=== PATIENT | female | born 1970 | race Caucasian/White ===

== ENCOUNTER 2022-08-19 12:29 | Emergency (ER) | payer BC ==
[~2022-08-19] VITALS: Ht 165.1 cm; Wt 68.9 kg
[2022-08-19 12:37] VITALS: BP_SYST 119
--- NOTE | 2022-08-19 12:50 | NUR ---
PT BIB SELF AWAKE AND ALERT AOX4. PT C/O R CHEST PAIN X4 DAYS, W/ SOB. PT STATES PAIN 8/10. PT HAS HX OF HTN, HYPOTHYROISISM, AND HYSTERECTOMY.
--- NOTE | 2022-08-19 12:55 | NUR ---
MD DR CABRERA AT BEDSIDE
[2022-08-19 14:04] LABS: BASOPHILS % (AUTO) 0.5 % (0.0-2.0); EOSINOPHILS # (AUTO) 0.1 K/uL (0.0-0.4); EOSINOPHILS % (AUTO) 1.7 % (0.0-4.0); HEMATOCRIT 39.3 % (36-48); HEMOGLOBIN 13.2 g/dL (12.0-16.0); MEAN CORPUSCULAR HEMOGLOBIN 29 pg (27-31); MEAN CORPUSCULAR HGB CONC 33 % (32-36); MEAN CORPUSCULAR VOLUME 87 fL (79.0-98.0); MONOCYTES # (AUTO) 0.5 K/uL (0.0-1.0); MONOCYTES % (AUTO) 8.3 % (1.7-9.3); NEUTROPHILS # (AUTO) 2.9 K/uL (1.8-7.7); NEUTROPHILS % (AUTO) 44.5 % (40.0-70.0); PLATELET COUNT (AUTO) 204 K/uL (130-430); RED BLOOD CELL COUNT(AUTO) 4.55 MIL/uL (4.2-6.2); RED CELL DISTRIBUTION WIDTH 13.8 % (9.0-15.0); WHITE BLOOD COUNT (AUTO) 6.6 K/uL (4.8-10.8)
[2022-08-19 14:06] LABS: ANION GAP 7 (5-15); CHLORIDE 106 mmol/L (98-107); CREATININE 0.75 mg/dL (0.55-1.30); GLUCOSE 126 mg/dL (70-99); UREA NITROGEN, BLOOD 17 mg/dL (8-21)
[2022-08-19 14:09] LABS: GFR AFRICAN AMERICAN 104 mL/min (>90)
[2022-08-19 14:14] LABS: ALANINE AMINOTRANSFERASE 55 U/L (12-78); ALBUMIN 3.5 g/dL (3.4-4.8); ASPARTATE AMINOTRANSFERASE 25 U/L (10-37); TOTAL BILIRUBIN 0.4 mg/dL (0.0-1.0)
[2022-08-19] MEDS ORDERED: IBUP-1969 PO (14:45)
[2022-08-19] MEDS ORDERED: HYDR-3917 PO (15:30)
[2022-08-19 17:21] VITALS: BP_SYST 135
--- NOTE | 2022-08-19 17:23 | NUR ---
Patient given written and verbal discharge instructions and verbalizes understanding. ER MD DR CABRERA discussed with patient the results and treatment provided. Patient in stable condition. ID arm band removed. Rx of given. Patient educated on pain management and to follow up with PMD. Pain Scale 2/10. Opportunity for questions provided and answered. Medication side effect fact sheet provided.
== END 2022-08-19 17:21 | disposition home or self-care (01) ==
LOC: SED 12:29
DX: R07.89 Other chest pain (principal); I10 Essential (primary) hypertension; Z88.5 Allergy status to narcotic agent; Z88.6 Allergy status to analgesic agent; Z79.899 Other long term (current) drug therapy
CPT/HCPCS: 36415; 71045; 80053; 84484; 84703; 85025; 85379; 93005; 99285